=== PATIENT | male | born 1970 | race Caucasian/White ===

== ENCOUNTER 2017-04-06 04:35 | Emergency (ER) | payer MEDICAID ==
[2017-04-06 04:35] VITALS: BMI 26.6
[2017-04-06 04:53] VITALS: RESP 20; TEMP 98
--- NOTE | 2017-04-06 05:34 | C.PDOC ---
History Of Present Illness Patient is a 47 y/o male who presents to the ED with a complaint of neck pain that worsens with [id number] movement for the past several months. Patient denies trauma, numbness, weakness, chest pain, SOB, injury, headache, or hearing changes. Patient also notes intermittent dizziness. No other physical complaints at this time. Time Seen by Provider: 04/06/17 05:08 Chief Complaint (Nursing): Back Pain History Per: Patient History/Exam Limitations: no limitations Onset/Duration Of Symptoms: Days (past several months), Gradual Current Symptoms Are (Timing): Still Present Previous Symptoms: denies: Prior Injury Associated Symptoms: denies: New Weakness, New Numbness Exacerbating Factor(s): Turning ([id number]) Recent travel outside of the [place]: No Past Medical History Reviewed: Historical Data, Nursing Documentation, Vital Signs Vital Signs: Last Vital Signs Temp 98 F 04/06/17 06:44 Pulse 79 04/06/17 06:44 Resp 20 04/06/17 06:44 BP 129/76 04/06/17 06:44 Pulse Ox 97 04/07/17 01:36 - Medical History PMH: Asthma, Depression (NO MED), Gastritis, Hypercholesterolemia (NO MED) Denies: Chronic Kidney Disease Surgical History: Endoscopy - [facility] Procedures ESOPHAGOGASTRODUODENOSCOPY [EGD] W/CLOSED BIOPSY (12/19/13) Family History: States: Diabetes - Social History Hx Tobacco Use: Yes (light smoker) Hx Alcohol Use: No Hx Substance Use: No - Immunization History Hx Tetanus Toxoid Vaccination: No Hx Influenza Vaccination: No Hx Pneumococcal Vaccination: No Review Of Systems ENT: Positive for: Other (negative hearing changes) Musculoskeletal: Positive for: Neck Pain Neurological: Positive for: Dizziness (intermittent). Negative for: Weakness, Numbness, Headache Physical Exam - Physical Exam Appears: Well, Non-toxic, No Acute Distress Skin: Normal Color, Warm, Dry, No Rash Head: Atraumatic, Normacephalic Eye(s): bilateral: Normal Inspection Oral Mucosa: Moist Neck: Normal, Normal ROM, No Midline Cervical Tenderness, Paracervical Tenderness, Supple Chest: Symmetrical, No Tenderness, No Ecchymosis, No Subcutaneous Emphysema Cardiovascular: Rhythm Regular, No Friction Rub, No Murmur Respiratory: Normal Breath Sounds, No Rales, No Rhonchi, No Wheezing Gastrointestinal/Abdominal: Soft, No Tenderness Back: Normal Inspection, No CVA Tenderness, No Vertebral Tenderness, No Paraspinal Tenderness Extremity: Normal ROM, No Swelling Neurological/Psych: Oriented x3, Normal Speech, Normal Cognition, Normal Motor Gait: Steady ED Course And Treatment O2 Sat by Pulse Oximetry: 97 Progress Note: CXR and cervical spine XR ordered. Flexeril, toradol, antivert, and prednisone administered. Medical Decision Making Medical Decision Making: On re-exam, the patient reports improvement of symptoms. Lungs are CTA, heart is RRR, abdomen is soft, non-tender and tolerating PO well. ambulatory in the ED with steady gait. Follow up with the medical doctor within 1-2 days, Return if worsened. Disposition - Disposition Referrals: Trace Clarke MD [Staff Provider] - Raheem Marino MD [Non-Staff] - Disposition: HOME/ ROUTINE Disposition Time: 06:20 Condition: GOOD Additional Instructions: Follow up with the medical doctor within 1-2 days without fail. Return if worsened. Prescriptions: Cyclobenzaprine [Cyclobenzaprine HCl] 10 mg PO BID #14 tab Meclizine HCl 25 mg PO TID PRN #25 ctb PRN Reason: Dizziness Naproxen [Naprosyn] 500 mg PO BID #20 tab Instructions: Muscle Spasm (ED) Forms: [facility] (Angolan) - POA Present On Arrival: None - Clinical Impression Clinical Impression: Muscle spasm, Dizziness - Scribe Statement The provider has reviewed the documentation as recorded by the Scribe Taylor Darnell All medical record entries made by the Scribe were at my direction and personally dictated by me. I have reviewed the chart and agree that the record accurately reflects my personal performance of the history, physical exam, medical decision making, and the department course for this patient. I have also personally directed, reviewed, and agree with the discharge instructions and disposition.
[2017-04-06 06:45] VITALS: BP 129/76; PULSE 79
--- NOTE | 2017-04-06 07:52 | RAD ---
PROCEDURE: Cervical Spine Radiographs. HISTORY: Pain. COMPARISON: None. FINDINGS: BONES: Alignment maintained. No fracture. Dens Intact. DISC SPACES: Normal. SOFT TISSUES: Normal. No prevertebral soft tissue swelling. OTHER FINDINGS: C2-3 apophyseal joint mild hypertrophy. IMPRESSION: No fracture or lytic lesion. Bilateral apophyseal joint mild hypertrophic arthrosis left greater than right
--- NOTE | 2017-04-06 08:19 | RAD ---
HISTORY: RIB PAIN COMPARISON: 01/07/2015 TECHNIQUE: Chest PA and lateral FINDINGS: LUNGS: No active pulmonary disease. PLEURA: No significant pleural effusion identified. No pneumothorax apparent. CARDIOVASCULAR: Normal. OSSEOUS STRUCTURES: No significant abnormalities. VISUALIZED UPPER ABDOMEN: Normal. OTHER FINDINGS: None. IMPRESSION: No active disease.
[2017-04-07 01:36] VITALS: O2SAT 97
== END 2017-04-06 06:43 | disposition home or self-care (01) ==
LOC: C.ER 04:35
DX: M62.838 Other muscle spasm (principal); R42 Dizziness and giddiness
CPT/HCPCS: 71046; 72040; 96372; 99283; J1885

== ENCOUNTER 2017-04-20 07:20 | Day surgery (SDC) | payer MEDICAID ==
[2017-04-20] MEDS ORDERED: Propofol 10 mg/ml Inj (20 ML) ONE (09:59)
[2017-04-20] MEDS ORDERED: Lactated Ringer's 1,000 ML IV ONE ×2 (10:14)
[2017-04-20] MEDS ORDERED: Lidocaine Hydrochloride 5 ML INJ ONE (10:26)
[2017-04-20] MEDS ORDERED: Lactated Ringer's 500 ML IV SCH (10:45)
[2017-04-20 10:50] VITALS: TEMP 97.4
[2017-04-20 11:29] VITALS: BP 123/79; PULSE 94; RESP 15; O2SAT 97
== END 2017-04-20 11:27 | disposition home or self-care (01) ==
LOC: C.ENDO 07:20
PROVIDERS: ATTEND Internal Medicine Gastroenterology
DX: R10.13 Epigastric pain (principal); J45.909 Unspecified asthma, uncomplicated; Z72.0 Tobacco use; K21.9 Gastro-esophageal reflux disease without esophagitis; Z79.899 Other long term (current) drug therapy; G89.29 Other chronic pain; M54.9 Dorsalgia, unspecified; K57.30 Diverticulosis of large intestine without perforation or abscess without bleeding; K64.8 Other hemorrhoids
CPT/HCPCS: 45378; J2704; J3010; J7120

== ENCOUNTER 2017-05-05 08:23 | Day surgery (SDC) | payer MEDICAID ==
[2017-05-05] MEDS ORDERED: Absorbable Gelatin Sponge Size 12-7 ONE (10:35)
[2017-05-05] MEDS ORDERED: Propofol 10 mg/ml Inj (20 ML) ONE (10:55)
[2017-05-05] MEDS ORDERED: Midazolam 2 MG/2 ML VIAL ONE (10:56)
--- NOTE | 2017-05-05 11:31 | CP.SDSHP ---
Same Day Surgery H & P - History Proposed Procedure: Image guided biopsy of liver lesions Pre-Op Diagnosis: Right hepatic hypervascular mass. - Allergies Allergies: Allergies No Known Allergies Allergy (Verified 03/30/16 08:30) - Physical Exam Mental Status: Alert & Oriented x3 Neuro: WNL - Impression Impression: Pt with multiple right hepatic hypervascular masses. Plan biopsy of lower right hepatic mass. This is ween on US and measures 1 cm. Pt. Evaluated Today:Candidate for Anesthesia & Procedure: Yes - Date & Time Date: 05/05/17 Time: 11:00 Short Stay Discharge - Short Stay Discharge Admitting Diagnosis/Reason for Visit: Enhansing liver lesions Disposition: HOME/ ROUTINE
--- NOTE | 2017-05-05 11:33 | PCM.SURG1 ---
Surgeon's Initial Post Op Note - Surgeon's Notes Surgeon: Gavino Perdue MD Dry Cleaner Presser: NONE Type of Anesthesia: IV Sedation Pre-Operative Diagnosis: Liver mass Operative Findings: CT did not show any masses. US of liver confirmerd a small hypoechoic lesion right hepatic lobe. Post-Operative Diagnosis: Liver mass Operation Performed: US and CT guided biopsy of right hepatic mass. Biopsy needle advanced under US guidance into the hypoechoic mass. Two 18 g core specimen removed. There were no immediate complications. Specimen/Specimens Removed: 18 gauge core x 2 Estimated Blood Loss: EBL {In ML}: 2 Blood Products Given: N/A Drains Used: No Drains Post-Op Condition: Fair Date of Surgery/Procedure: 05/05/17 Time of Surgery/Procedure: 11:25
[2017-05-05 12:23] VITALS: RESP 15
[2017-05-05 12:52] VITALS: BP 106/75; PULSE 79; TEMP 97.5; O2SAT 95
--- NOTE | 2017-05-05 13:29 | US ---
PROCEDURE: Date of procedure: 05/05/2017 Procedure: 1. Limited ultrasound performed of the liver for biopsy. Medications: The patient was sedated by the anesthesiologist with IV sedation and monitoring, 5 cc 1% lidocaine. HISTORY: liver mass TECHNIQUE: Limited ultrasound performed for purposes of hepatic mass biopsy. Ultrasound right hepatic lobe confirmed presence of a 14 millimeter hypodense lesion within the inferior right hepatic lobe. Following informed consent, the Pt's Abdomen was marked. The Pt was placed supine on the CT table and procedure time out was performed. A noncontrast CT scan did not show any definable lesions within the right hepatic lobe. Liver mass protocol CT scan was reviewed which was not previously. Hypervascular lesions were noted within the right hepatic lobe. Limited ultrasound patient's abdomen confirmed the presence of a 14 millimeter hypodense lesion within the inferior right hepatic lobe. A skin localizer was placed on the patient's abdomen and a repeat CT scan performed. The skin was prepped and draped in the usual sterile fashion. After the patient was sedated by anesthesiologist and the skin anesthetized with 1% lidocaine, an 18 gauge core needle was advanced percutaneously under direct ultrasound guidance into the mass. Position of needle was confirmed with CT scan. Upon confirmation of needle position, three core specimens were obtained and sent for routine pathology. The biopsy track was then embolized with Gelfoam. A post biopsy CT scan performed showed no hematoma. A dressing was applied. IMPRESSION: Limited abdominal ultrasound for purposes of liver mass biopsy.
== END 2017-05-05 12:59 | disposition home or self-care (01) ==
LOC: C.SDS 08:23
PROVIDERS: ATTEND Radiology Vascular & Interventional Radiology
DX: R16.0 Hepatomegaly, not elsewhere classified (principal); K21.9 Gastro-esophageal reflux disease without esophagitis; K75.81 Nonalcoholic steatohepatitis (NASH)
CPT/HCPCS: 47000; 77012; 88307; J2250; J2704; J3010

== ENCOUNTER 2017-06-25 01:56 | Emergency (ER) | payer MEDICAID ==
[2017-06-25 01:57] VITALS: BMI 26.6
--- NOTE | 2017-06-25 02:27 | C.PDOC ---
History Of Present Illness 47 year old male presents to the ED complaining of body aches, chills, right ear pain, sore throat and congestions, onset one day ago. Patient reports Tmax at home was 102. Patients states he took tylenol but feels no relief, fevers keep returning. Denies any other symptoms or significant medical history. Chief Complaint (Nursing): Flu-like Symptoms History Per: Patient History/Exam Limitations: no limitations Onset/Duration Of Symptoms: Days (1) Current Symptoms Are (Timing): Still Present Location Of Pain: Ear(s) (right ear), Throat (sore throat) Sick Contacts (Context): None Associated Symptoms: Fever, Chills, Sore Throat, Myalgias, Nasal Congestion Ear Symptoms: Right: Ear Pain Past Medical History Reviewed: Historical Data, Nursing Documentation, Vital Signs Vital Signs: Last Vital Signs Temp 99.2 F 06/25/17 02:45 Pulse 84 06/25/17 02:45 Resp 14 06/25/17 02:45 BP 130/80 06/25/17 02:45 Pulse Ox 99 06/25/17 02:45 - Medical History PMH: Asthma, Depression (NO MED), Gastritis, Hypercholesterolemia (NO MED) Denies: Chronic Kidney Disease Surgical History: Endoscopy - [facility] Procedures ESOPHAGOGASTRODUODENOSCOPY [EGD] W/CLOSED BIOPSY (12/19/13) Family History: States: Diabetes - Social History Hx Tobacco Use: Yes (light smoker) Hx Alcohol Use: No Hx Substance Use: No - Immunization History Hx Tetanus Toxoid Vaccination: No Hx Influenza Vaccination: No Hx Pneumococcal Vaccination: No Review Of Systems Except As Marked, All Systems Reviewed And Found Negative. Constitutional: Positive for: Fever (Tmax), Chills, Other (myalgia ) ENT: Positive for: Nose Congestion, Throat Pain (sore) Physical Exam - Physical Exam Appears: Other (uncomfortable) Eye(s): bilateral: Normal Inspection Ear(s): Left: Normal, Right: TM Erythema (right sympanic tenderness), TM Dull Nose: Normal Oral Mucosa: Moist (right submandibular mimphanitis. ), No Drooling, No Other ( stridor) Neck: Normal, Supple Cardiovascular: Rhythm Regular (regular resting tachycardic at 128 ) Respiratory: Normal Breath Sounds Gastrointestinal/Abdominal: Normal Exam, Soft, No Tenderness Extremity: Normal ROM, No Pedal Edema Neurological/Psych: Oriented x3, Normal Speech Gait: Steady ED Course And Treatment O2 Sat by Pulse Oximetry: 97 (RA) Pulse Ox Interpretation: Normal Medical Decision Making Medical Decision Making: Time: 227 Impression: Right otitis Media Plan: -- Augmentin 1 tab PO stat -- Percocet 1 tab PO stat Disposition - Disposition Disposition: HOME/ ROUTINE Disposition Time: 06:23 Condition: GOOD Prescriptions: Amoxicillin/Clavulanate [Augmentin 875 MG-125 MG] 1 tab PO BID #20 tab oxyCODONE/Acetaminophen [Percocet 5/325 mg Tab] 1 ea PO TID PRN #15 tab PRN Reason: Pain, Mild (1-3) Instructions: Ear Infections (Otitis Media) Forms: [employer] ([place] Islander) Print Language: ROMANIAN - Clinical Impression Clinical Impression: Otitis media
[2017-06-25] MEDS ORDERED: Amoxicillin-Clav 875-125 mg Tab PO STA (02:28)
[2017-06-25] MEDS ORDERED: Oxycodone/Acetaminophen 5/325 mg Tab PO STA (02:28)
[2017-06-25] MEDS ORDERED: Oxycodone/Acetaminophen 5/325 mg Tab ONE (02:42)
[2017-06-25] MEDS ORDERED: Amoxicillin-Clav 875-125 mg Tab PO ONE (02:42)
[2017-06-25 02:59] VITALS: BP 130/80; PULSE 84; RESP 14; TEMP 99.2
[2017-06-25 06:24] VITALS: O2SAT 97
== END 2017-06-25 03:01 | disposition home or self-care (01) ==
LOC: C.ER 01:56
DX: H66.91 Otitis media, unspecified, right ear (principal)

== ENCOUNTER 2017-08-13 07:56 | Emergency (ER) | payer MEDICAID ==
[2017-08-13 07:56] VITALS: BMI 26.6
[2017-08-13 08:02] VITALS: RESP 18
[2017-08-13] MEDS ORDERED: Sodium Chloride 0.9% 1,000 ML IV ONE (08:29)
[2017-08-13] MEDS ORDERED: Sodium Chloride 0.9% 1,000 ML ONE (08:37)
[2017-08-13 08:57] LABS: BASO # 0.1 K/uL (0.0-0.2); BASO % 0.6 % (0.0-2.0); EOS # 0.5 K/uL (0.0-0.7); EOS % 5.5 % (0.0-4.0); HEMOGLOBIN 16.4 g/dL (12.0-18.0); LYMPH # 2.4 K/uL (1.0-4.3); LYMPH % 28.5 % (20.0-40.0); MEAN CELL VOLUME 86.4 fL (80.0-94.0); MEAN CORPUSCULAR HEMOGLOBIN 29.3 pg (27.0-31.0); MONO # 1.2 K/uL (0.0-0.8); MONO % 13.6 % (0.0-10.0); NEUT # 4.4 K/uL (1.8-7.0); NEUT % 51.8 % (50.0-75.0); NRBC % 0.1 % (0.0-2.0); RBC 5.6 Mil/uL (4.40-5.90); RED CELL DISTRIBUTION WIDTH 13.8 % (11.5-14.5); WHITE BLOOD COUNT 8.5 K/uL (4.8-10.8)
--- NOTE | 2017-08-13 08:58 | RAD ---
HISTORY: SOB COMPARISON: Comparison is made with 04/06/2017 TECHNIQUE: Chest PA and lateral FINDINGS: LUNGS: No active pulmonary disease. PLEURA: No significant pleural effusion identified. No pneumothorax apparent. CARDIOVASCULAR: Normal. OSSEOUS STRUCTURES: No significant abnormalities. VISUALIZED UPPER ABDOMEN: Normal. OTHER FINDINGS: None. IMPRESSION: No active disease.
[2017-08-13 09:15] LABS: ALB/GLOB RATIO 1.4 (1.0-2.1); ALBUMIN 4.5 g/dL (3.5-5.0); ALT/SGPT 50 U/L (21-72); AST/SGOT 38 U/L (17-59); BLOOD UREA NITROGEN 15 mg/dL (9-20); CALCIUM 9.2 mg/dl (8.6-10.4); GFR AFRICAN-AMERICAN > 60; GFR NON-AFRICAN AMERICAN > 60; LIPASE 105 U/L (23-300)
[2017-08-13 09:26] LABS: CK-MB 0.89 ng/mL (0.0-3.38)
[2017-08-13 09:28] LABS: B-TYPE NATRIURETIC PEPTIDE < 11.1 pg/mL (0-450)
[2017-08-13] MEDS ORDERED: Amoxicillin-Clav 500-125 mg Tab PO ONE (11:11)
[2017-08-13 14:09] VITALS: TEMP 98
--- NOTE | 2017-08-13 14:43 | C.PDOC ---
History Of Present Illness 47 year old male presents to the emergency department with complaints of left sided chest pain which has been intermittent for the past week. The chest pain is non-radiating and intermittent. Patient reports symptoms of body aches, right ear pain, and an occasional cough. Pt reports a normal bowel movement yesterday. He denies dysuria, abdominal pain, back pain, sob, and fever. Time Seen by Provider: 08/13/17 08:12 Chief Complaint (Nursing): Chest Pain History Per: Patient History/Exam Limitations: no limitations Onset/Duration Of Symptoms: Days (7), Intermittent Episodes Current Symptoms Are (Timing): Still Present Quality: Aching, "Pain" Associated Symptoms: Other (body aches, right ear pain, cough) Past Medical History Reviewed: Historical Data, Nursing Documentation, Vital Signs Vital Signs: Last Vital Signs Temp 98 F 08/13/17 16:00 Pulse 90 08/13/17 16:00 Resp 18 08/13/17 16:00 BP 107/80 08/13/17 16:00 Pulse Ox 96 08/13/17 16:00 - Medical History PMH: Asthma, Depression (NO MED), Gastritis, Hypercholesterolemia (NO MED) Denies: Chronic Kidney Disease Surgical History: Endoscopy - [facility] Procedures ESOPHAGOGASTRODUODENOSCOPY [EGD] W/CLOSED BIOPSY (12/19/13) Family History: States: Diabetes - Social History Hx Tobacco Use: Yes (light smoker) Hx Alcohol Use: No Hx Substance Use: No - Immunization History Hx Tetanus Toxoid Vaccination: No Hx Influenza Vaccination: No Hx Pneumococcal Vaccination: No Review Of Systems Except As Marked, All Systems Reviewed And Found Negative. Constitutional: Positive for: Malaise Cardiovascular: Positive for: Chest Pain Respiratory: Positive for: Cough Physical Exam - Physical Exam Appears: Well, Non-toxic, No Acute Distress Skin: Normal Color, Warm, Dry Head: Atraumatic, Normacephalic Eye(s): bilateral: Normal Inspection, PERRL, EOMI Ear(s): Left: Normal, Right: TM Erythema Nose: Other ((+) nasal congestion) Oral Mucosa: Moist Throat: Normal, No Erythema, No Exudate Neck: Normal ROM, Supple Chest: Symmetrical Cardiovascular: Rhythm Regular Respiratory: Normal Breath Sounds, No Accessory Muscle Use, Other (speaking full sentences) Gastrointestinal/Abdominal: Normal Exam, Soft, No Tenderness, No Guarding, No Rebound Back: No CVA Tenderness, No Vertebral Tenderness Extremity: Normal ROM Neurological/Psych: Oriented x3, Normal Speech, Other (no focal deficits) ED Course And Treatment - Laboratory Results Result Diagrams: 08/13/17 08:47 08/13/17 08:47 ECG: Interpreted By Me, Viewed By Me ECG Rhythm: Sinus Rhythm (96bpm) O2 Sat by Pulse Oximetry: 98 (RA) Pulse Ox Interpretation: Normal - Radiology CXR: Interpreted by Me, Viewed By Me CXR Interpretation: Yes: No Acute Disease Progress Note: Aspirin 324mg PO and IV Fluids ordered. On re-evaluation, pt notes chest pain returned. No sob. REquests admission. Case discussed with Dr Reaves, agreed upon plan and admission. - Physician Consult Information Physician Contacted: Nanette Reaves Outcome Of Conversation: Agreed upon admission. Disposition - Disposition Disposition: AGAINST MEDICAL ADVICE Disposition Time: 14:10 Condition: STABLE Forms: [facility] (Bulgarian) - Clinical Impression Clinical Impression: Chest pain, Otitis media - PA / CERTIFIED CREDIT COUNSELOR / Resident Statement MD/DO has reviewed & agrees with the documentation as recorded. - Scribe Statement The provider has reviewed the documentation as recorded by the Scribe (Renan Townsend) All medical record entries made by the Scribe were at my direction and personally dictated by me. I have reviewed the chart and agree that the record accurately reflects my personal performance of the history, physical exam, medical decision making, and the department course for this patient. I have also personally directed, reviewed, and agree with the discharge instructions and disposition.
--- NOTE | 2017-08-13 16:16 | CP.PCM.HP ---
Past Patient History - Infectious Disease Hx of Infectious Diseases: None - Past Medical History & Family History Past Medical History?: Yes - Past Social History Smoking Status: Light Smoker < 10 Cigarettes Daily - CARDIAC Hx Hypercholesterolemia: Yes (NO MED) - PULMONARY Hx Asthma: Yes - NEUROLOGICAL Hx Neurological Disorder: Yes - HEENT Hx HEENT Problems: No - RENAL Hx Chronic Kidney Disease: No - ENDOCRINE/METABOLIC Hx Endocrine Disorders: No - INTEGUMENTARY Hx Dermatological Problems: Yes (pruritus) - MUSCULOSKELETAL/RHEUMATOLOGICAL Hx Musculoskeletal Disorders: Yes Hx Back Pain: Yes Hx Herniated Disk: Yes (lumbar) - GASTROINTESTINAL Hx Gastritis: Yes - GENITOURINARY/GYNECOLOGICAL Hx Genitourinary Disorders: No - PSYCHIATRIC Hx Depression: Yes (NO MED) Hx Substance Use: No - SURGICAL HISTORY Hx Surgeries: Yes 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) - ANESTHESIA Hx Anesthesia: Yes Hx Anesthesia Reactions: No Hx Malignant Hyperthermia: No Meds Allergies/Adverse Reactions: Allergies Allergy/AdvReac Type Severity Reaction Status Date / Time No Known Allergies Allergy Verified 08/13/17 08:02 Physical Exam - Constitutional Appears: Well - Head Exam Head Exam: ATRAUMATIC, NORMAL INSPECTION, NORMOCEPHALIC - Eye Exam Eye Exam: EOMI, Normal appearance, PERRL Pupil Exam: NORMAL ACCOMODATION, PERRL - ENT Exam ENT Exam: Mucous Membranes Moist, Normal Exam - Neck Exam Neck exam: Positive for: Normal Inspection - Respiratory Exam Respiratory Exam: Decreased Breath Sounds - Cardiovascular Exam Cardiovascular Exam: REGULAR RHYTHM, +S1, +S2 - GI/Abdominal Exam GI & Abdominal Exam: Diminished Bowel Sounds, Soft - Rectal Exam Rectal Exam: Deferred Results - Vital Signs Recent Vital Signs: Last Vital Signs Temp 98 F 08/13/17 14:09 Pulse 87 08/13/17 14:09 Resp 18 08/13/17 14:09 BP 120/83 08/13/17 14:09 Pulse Ox 98 08/13/17 15:14 - Labs Result Diagrams: 08/13/17 08:47 08/13/17 08:47 Labs: Laboratory Results - last 24 hr 08/13/17 08/13/17 08:47 08:47 WBC 8.5 RBC 5.60 Hgb 16.4 Hct 48.4 MCV 86.4 MCH 29.3 MCHC 34.0 RDW 13.8 Plt Count 285 MPV 8.0 Neut % (Auto) 51.8 Lymph % (Auto) 28.5 [place] % (Auto) 13.6 H Eos % (Auto) 5.5 H Baso % (Auto) 0.6 Neut # (Auto) 4.4 Lymph # (Auto) 2.4 [place] # (Auto) 1.2 H Eos # (Auto) 0.5 Baso # (Auto) 0.1 Sodium 144 Potassium 3.9 Chloride 105 Carbon Dioxide 26 Anion Gap 17 BUN 15 Creatinine 0.9 Est GFR ( Amer) > 60 Est GFR (Non-Af Amer) > 60 Random Glucose 102 Calcium 9.2 Total Bilirubin 0.7 AST 38 ALT 50 Alkaline Phosphatase 95 Total Creatine Kinase 202 H CK-MB (Mass) 0.89 Troponin I < 0.0120 NT-Pro-B Natriuret Pep < 11.1 Total Protein 7.7 Albumin 4.5 Globulin 3.2 Albumin/Globulin Ratio 1.4 Lipase 105
[2017-08-13 16:41] VITALS: BP 107/80; PULSE 90
[2017-08-13 18:06] VITALS: O2SAT 98
== END 2017-08-13 16:00 | disposition left against medical advice (07) ==
LOC: C.ER 07:56 → UNDOADMOB 11:24 → C.9E 11:24
DX: R07.9 Chest pain, unspecified (principal); H66.91 Otitis media, unspecified, right ear; J45.909 Unspecified asthma, uncomplicated; E78.00 Pure hypercholesterolemia, unspecified; F17.210 Nicotine dependence, cigarettes, uncomplicated
CPT/HCPCS: 71046; 80053; 82550; 82553; 83690; 83880; 84484; 85025; 96360; 99285; J7030